=== PATIENT | female | born 1965 | race Caucasian/White ===

== ENCOUNTER 2018-03-12 23:24 | Inpatient (IN) | payer SELFPAY ==
[2018-03-12] MEDS ORDERED: SODIUM CHLORIDE 0.9% FLUSH 10 ML FLUSH IV FLUSH (23:45)
[2018-03-13] MEDS: SODIUM CHLOR 0.9% 1000 ML INJ 1,000 ML IV ×2 (00:06→01:41)
[2018-03-13] MEDS: KETOROLAC TROMETHAMINE 30 MG/ML (IVP) VIAL IVP (00:06)
[2018-03-13 00:21] LABS: BILIRUBIN, URINE NEG (NEG); BLOOD, URINE LARGE (NEG); GLUCOSE,URINE NEG (NEG); KETONE, URINE TRACE mg/dL (NEG); NITRITE,URINE NEG (NEG); PH, URINE 5.5 (5.0-8.5); URINE COLOR YELLOW (YELLW/STRAW); URINE LEUKOCYTE ESTERASE NEG (NEG)
[2018-03-13 00:33] LABS: AUTOMATED NEUTROPHIL # 8.5 TH/MM3 (1.8-7.7); BASOPHIL # 0.1 TH/MM3 (0-0.2); BASOPHIL % 0.8 % (0.0-2.0); CHLORIDE 106 MEQ/L (98-107); EOSINOPHIL # 0.1 TH/MM3 (0-0.4); EOSINOPHIL % 0.9 % (0.0-4.0); HEMATOCRIT 40.2 % (35.0-46.0); HEMO FLAGS DIFF FINAL; HEMOGLOBIN 13.9 GM/DL (11.6-15.3); LYMPH % 25.2 % (9.0-44.0); LYMPHOCYTE # 3.2 TH/MM3 (1.0-4.8); MEAN CELL VOLUME 87.3 FL (80.0-100.0); MEAN CORPUSCULAR HEMOGLOBIN 30.1 PG (27.0-34.0); MEAN CORPUSCULAR HGB CONC 34.5 % (32.0-36.0); MEAN PLATELET VOLUME 9.9 FL (7.0-11.0); MONO % 5.1 % (0.0-8.0); MONOCYTE # 0.6 TH/MM3 (0-0.9); PLATELET COUNT 221 TH/MM3 (150-450); POTASSIUM 3.6 MEQ/L (3.5-5.1); RED BLOOD COUNT 4.61 MIL/MM3 (4.00-5.30); RED CELL DISTRIBUTION WIDTH 13.7 % (11.6-17.2); SODIUM (NA) 139 MEQ/L (136-145); WHITE BLOOD COUNT 12.5 TH/MM3 (4.0-11.0)
[2018-03-13 00:37] LABS: ALBUMIN 3.7 GM/DL (3.4-5.0); ANION GAP 6 MEQ/L (5-15); BICARBONATE 27.3 MEQ/L (21.0-32.0); CALCIUM 9.3 MG/DL (8.5-10.1); COMMENT (UR) CULT NOT INDICATED; CULTURE IF INDICATED CULT NOT INDICATED; GLUCOSE,RANDOM 117 MG/DL (74-106); LIPASE 166 U/L (73-393); MUCUS URINE FEW /lpf (OCC); SQUAMOUS EPITHELIAL CELL URINE 0-5 /hpf (0-5); WBC, URINE 0-2 /hpf (0-5)
[2018-03-13 00:38] LABS: BLOOD UREA NITROGEN 13 MG/DL (7-18)
[2018-03-13 00:40] LABS: ALT (GPT) 31 U/L (10-53); AST (GOT) 19 U/L (15-37)
[2018-03-13 00:41] LABS: GLOMERULAR FILTRATION RATE 53 ML/MIN (>89)
[2018-03-13 00:42] LABS: TOTAL BILIRUBIN ADULT 0.3 MG/DL (0.2-1.0); TOTAL PROTEIN 7.7 GM/DL (6.4-8.2)
[2018-03-13 00:43] LABS: ALKALINE PHOSPHATASE 74 U/L (45-117)
[2018-03-13] MEDS ORDERED: MAGNESIUM HYDROXIDE SUSP 30 ML CUP PO (01:30)
[2018-03-13] MEDS ORDERED: MORPHINE SULFATE 4 MG/ML INJ IV PUSH (01:30)
[2018-03-13] MEDS ORDERED: SODIUM CHLORIDE 0.9% FLUSH 10 ML FLUSH IV FLUSH (01:30)
[2018-03-13] MEDS ORDERED: ACETAMINOPHEN 325 MG TAB PO (01:30)
[2018-03-13] MEDS ORDERED: METOCLOPRAMIDE HCL 10 MG/2 ML VIAL IV PUSH (01:30)
[2018-03-13] MEDS ORDERED: LACTULOSE SYRUP 20 GM/30 ML CUP PO (01:30)
[2018-03-13] MEDS ORDERED: SENNOSIDES 8.6 MG TAB PO (01:30)
[2018-03-13] MEDS ORDERED: BISACODYL 10 MG SUPP RECTAL (01:30)
[2018-03-13] MEDS: cefTRIAXone INJ 1,000 MG in SODIUM CHLORIDE 0.9% INJ 100 ML IV (02:57)
[2018-03-13] MEDS: DOCUSATE SODIUM 50 MG/SENNA 8.6 MG TAB PO (07:32)
[2018-03-13] MEDS: ACETAMINOPHEN/HYDROcodone 325 MG/5 MG TAB PO (07:33)
[2018-03-13] MEDS: SODIUM CHLORIDE 0.9% FLUSH 10 ML FLUSH IV FLUSH (07:35)
[2018-03-13] MEDS: LACTATED RINGER'S 1000 ML IV (09:32)
[2018-03-13] MEDS ORDERED: SODIUM CHLORID 0.9% 500 ML IV (10:00)
[2018-03-13] MEDS ORDERED: METOPROLOL TARTRATE 25 MG TAB PO (10:00)
[2018-03-13] MEDS ORDERED: INSULIN HUMAN REGULAR 1,000 UNITS/10 ML VIAL SQ (10:00)
[2018-03-13] MEDS ORDERED: POVIDONE IODINE 5% (ANTISEPSIS KIT) 4 APPLICATIONS EACH NARE (10:00)
[2018-03-13] MEDS ORDERED: CHLORHEXIDINE GLUCONATE 2 % 1 PACK (2 CLOTHS) TOPICAL (10:00)
[2018-03-13] MEDS: MIDAZOLAM HCL 2 MG/2 ML VIAL (10:05)
[2018-03-13] MEDS ORDERED: DO NOT ADM ANY ANTICOAGULANT DRUGS (11:30)
== END 2018-03-13 17:11 | disposition home or self-care (01) | DRG 694 ==
LOC: PHED 23:24 → PHEDA 03-13 01:26 → PH3A 03-13 03:09
PROC: 0T778DZ Dilation of Left Ureter with Intraluminal Device, Via Natural or Artificial Opening Endoscopic (ICD-10-PCS; principal; 2018-03-13 10:09)
DX: N13.2 Hydronephrosis with renal and ureteral calculous obstruction (principal); I10 Essential (primary) hypertension; Z88.2 Allergy status to sulfonamides; Z90.710 Acquired absence of both cervix and uterus
CPT/HCPCS: 74176; 76000; 80053; 81001; 83690; 85025; 93005; 96361; 96374; 99285-25